=== PATIENT | female | born 1945 | race Two or more races ===

== ENCOUNTER 2017-08-27 05:57 | Day surgery (SDC) | payer OTHER ==
[2017-08-27] VITALS (8 sets, daily range): BP systolic 93–142; BP diastolic 45–81; PULSE 63–99; RESP 12–21; Ht 162.6 cm; Wt 87.3 kg
[~2017-08-27] VITALS: Ht 162.6 cm; Wt 87.3 kg
[2017-08-27] MEDS ORDERED: TOBRAMYCIN 0.3% 3.5 GM OPH OINT ONE (06:28)
[2017-08-27] MEDS ORDERED: LIDOCAINE 1% (MPF) 10 ML INJ ONE (06:29)
[2017-08-27] MEDS ORDERED: TRYPAN BLUE 0.5 ML SYG IO ONE (06:29)
[2017-08-27] MEDS ORDERED: BROMFENAC SODIUM 1.7 ML OPH DROP OPER SCH (06:30)
[2017-08-27] MEDS ORDERED: LIDOCAINE 3.5% GEL TUBE OPER ONE ×2 (06:30)
[2017-08-27] MEDS ORDERED: MOXIFLOXACIN 0.5% 3 ML OPH OPER SCH (06:30)
[2017-08-27] MEDS ORDERED: LACTATED RINGER'S 1,000 ML IV SCH (06:30)
[2017-08-27] MEDS ORDERED: CYCLOPENTOLATE 2% 2 ML OPH OPER SCH (06:30)
[2017-08-27] MEDS ORDERED: PHENYLephrine 10% 5 ML OPH OPER SCH (06:30)
[2017-08-27] MEDS ORDERED: TETRACAINE 0.5% 4 ML OPH OPER SCH (06:30)
[2017-08-27] MEDS ORDERED: TROPICAMIDE 1% 3 ML OPH OPER SCH (06:30)
[2017-08-27] MEDS ORDERED: EPINEPHrine 1 MG INJ ONE (06:32)
[2017-08-27] MEDS ORDERED: TETRACAINE 0.5% 4 ML OPH RIGHT EYE ONE (06:48)
[2017-08-27] MEDS ORDERED: LIDOCAINE 1% (MPF) 10 ML INJ INJ ONE (06:48)
[2017-08-27] MEDS ORDERED: NA HYALURONATE/CHONDROITIN 0.5 ML SYG RIGHT EYE ONE (06:48)
[2017-08-27] MEDS ORDERED: LOSA50TA6 PO (06:51)
[2017-08-27] MEDS ORDERED: FOLI-49 PO (06:51)
[2017-08-27] MEDS ORDERED: VIT1TABL85 PO (06:51)
[2017-08-27] MEDS ORDERED: CHLO50TA15 PO (06:51)
[2017-08-27] MEDS ORDERED: SIMV20TA PO (06:51)
[2017-08-27] MEDS ORDERED: AMLO-147 PO (06:51)
[2017-08-27] MEDS ORDERED: ASPI-664 PO (06:51)
[2017-08-27] MEDS ORDERED: CALC-68 PO (06:51)
--- NOTE | 2017-08-27 07:06 | HPN ---
Date/Time of Note Date/Time of Note DATE: 08/27/17 TIME: 07:05 Interval H&P Admission Note Pt. seen H&P reviewed: No system changes CHRIS HASKINS D.O. Aug 27, 2017 07:06
[2017-08-27] MEDS ORDERED: LIDOCAINE 1%/EPI 30 ML INJ ONE (07:12)
[2017-08-27] MEDS ORDERED: CEFAZOLIN 1 GM INJ ONE (07:42)
[2017-08-27] MEDS ORDERED: LABETALOL HCL 20MG INJ ONE (07:42)
[2017-08-27] MEDS ORDERED: CARBACHOL 0.01% 1.5 ML OPH INJ ONE (07:59)
[2017-08-27] MEDS ORDERED: CARBACHOL 0.01% 1.5 ML OPH INJ IO ONE (08:20)
[2017-08-27] MEDS ORDERED: TOBRAMYCIN 0.3% 3.5 GM OPH OINT RIGHT EYE ONE (08:21)
--- NOTE | 2017-08-27 08:34 | SIPON ---
Date/Time of Note Date/Time of Note DATE: 08/27/17 TIME: 08:28 Operative Report Preoperative Diagnosis Senile cataract, Left eye. Postoperative Diagnosis Senile cataract, left eye. Operation/Procedure Performed Cataract extraction via phacoemulsification and intraocular lens implantation., Left eye. Surgeon see signature line outpatient physical therapist assistant none Anesthesia: MAC Estimated blood loss: none Transfusion Required none Specimen none Grafts/Implants Bausch and Lomb IOL18.0 L122UV Complications none CHRIS HASKINS D.O. Aug 27, 2017 08:34
[2017-08-27] MEDS ORDERED: NA HYALURONATE/CHONDROITIN 0.5 ML SYG ONE (08:37)
[2017-08-27] MEDS ORDERED: FENTAnyl 50 MCG/ML VIAL ONE (08:39)
[2017-08-27] MEDS ORDERED: hydrALAzine 20 MG INJ IV PRN (09:00)
[2017-08-27] MEDS ORDERED: MEPERIDINE 25 MG INJ IV PRN (09:00)
[2017-08-27] MEDS ORDERED: LABETALOL HCL 20MG INJ IV PRN (09:00)
[2017-08-27] MEDS ORDERED: EPHEDrine SULFATE 50 MG/5 ML SYG IV PRN (09:00)
[2017-08-27] MEDS ORDERED: OXYCODONE/ACETAMINOPHEN (5/325) TAB PO PRN ×2 (09:00)
[2017-08-27] MEDS ORDERED: MIDAZOLAM 1 MG/ML 2 ML INJ IV PRN (09:00)
[2017-08-27] MEDS ORDERED: ONDANSETRON 4 MG INJ IV PRN (09:00)
[2017-08-27] MEDS ORDERED: FENTAnyl 50 MCG/ML VIAL IV PRN ×3 (09:00)
[2017-08-27] MEDS ORDERED: DIPHENHYDRAMINE 50 MG INJ IV PRN (09:00)
[2017-08-27] MEDS ORDERED: METOCLOPRAMIDE 10 MG INJ IV PRN (09:00)
--- NOTE | 2017-08-27 11:50 | OPR ---
DATE OF OPERATION: 08/27/2017 SURGEON: Chris Viera DO ANESTHESIOLOGIST: Beverly Romero PREOPERATIVE DIAGNOSIS: Senile mature cataract, right eye. POSTOPERATIVE DIAGNOSIS: Senile mature cataract, right eye. PLANNED PROCEDURE: Cataract extraction via phacoemulsification and intraocular lens implantation, Rt.eye. OPERATION PERFORMED: Cataract extraction vis phacoemulsification and intraocular lens implantation, Rt. eye. CONSENT: Patient was given a detailed explanation regarding options for treatment of cataract. One of them is observation and the second one to perform the surgery, removal of the cataract. The patient was explained most of the possible complications can occur, such as bleeding, infection, dislocation of intraocular lens, loss of lens fragments, retinal detachment, possibility of additional surgery by another retina specialist, loss of vision and loss of the eye as an organ. All questions were answered. The patient decided to have surgery done and consent is in the chart. DESCRIPTION OF PROCEDURE: The patient was brought to the operating room in stable condition, placed in supine position on operating table and her right eye was prepped for cataract surgery in routine sterile technique. Retractor was placed into the right eye to keep the eyelid open, then a clear cornea incision was done with keratome, which was followed by injection of preservative-free lidocaine 1% and Viscoat agent. Then, cystotome and Utrata forceps used to perform a capsulorrhexis. Then balance salt solution was instilled and hydrodissection and hydrodelineation was performed. Paracentesis was done and phaco tip and [place] chopper was inserted into anterior chamber and nucleus was divided into multiple pieces. Each of them was emulsified successfully. There was some unusual movement of the posterior capsule bag and possibility of tear noticed. Therefore, intraocular lens was implanted, Bausch and Lomb model L122UV, power 18.00. Then, balanced salt solution used to irrigate and aspirate remnants of Viscoat material and an air bubble was injected in the anterior chamber to protect the endothelium. Then 10-0 nylon suture was placed on the corneal entrance incision and TobraDex ointment was instilled into conjunctival sac and patch placed over closed eyelid. Dictated By: CHRIS BENNETT/SHAKIR Conf#: [id number] [facility]#: [id number] [facility]
== END 2017-08-27 10:13 | disposition home or self-care (01) ==
LOC: SDS 05:57
PROVIDERS: ATTEND Ophthalmology
DX: H25.9 Unspecified age-related cataract (principal); I10 Essential (primary) hypertension
CPT/HCPCS: 66984; J0171; J0690; J3010; V2630; Z7512; Z7610; J7120